=== PATIENT | female | born 1960 | race Caucasian/White ===

== ENCOUNTER 2017-08-08 10:46 | Emergency (ER) | payer OTHER, SELFPAY ==
[2017-08-08 11:10] VITALS: BP 158/92; PULSE 96; RESP 22; TEMP 36.8; O2SAT 100; BMI 26.5
[2017-08-08 11:36] LABS: Basophils % 0.5 % (0.1-2.0); Eosinophils # 0.1 K/mm3 (0.0-0.4); Hematocrit 40.5 % (37.0-47.0); Hemoglobin 13.3 g/dL (12.2-16.2); Lymphocytes # 2.7 K/mm3 (0.7-4.5); Lymphocytes % 41.6 K/mm3 (10-50); Mean Corpuscular HGB Conc 32.8 g/dL (31.8-35.4); Mean Corpuscular Hemoglobin 29.6 pg (27.0-31.2); Mean Corpuscular Volume 90.4 fl (81-99); Mean Platelet Volume 7.9 fl (7.4-10.4); Monocytes # 0.3 K/mm3 (0.1-1.0); Monocytes % 4.9 % (1.7-9.3); Neutrophils # 3.3 K/mm3 (1.8-7.8); Neutrophils % 51.9 % (37.0-80.0); Platelet Count 234 K/mm3 (142-424); Red Blood Count 4.48 M/mm3 (4.20-5.40); Red Cell Distribution Width 12.7 % (11.5-17.5); White Blood Count 6.4 K/mm3 (4.8-10.8)
[2017-08-08 11:56] LABS: Alanine Aminotransferase 25 U/L (12-78); Albumin Level 3.9 gm/dL (3.4-5.0); Albumin/Globulin Ratio 1.1 (1.1-1.8); Alkaline Phosphatase 63 U/L (46-116); Anion Gap 14.4 mEq/L (5-15); Aspartate Amino Transferase 19 U/L (15-37); Bilirubin,Total 0.4 mg/dL (0.2-1.0); Blood Urea Nitrogen 12 mg/dL (7-18); Calcium 8.9 mg/dL (8.5-10.1); Carbon Dioxide 26 mmol/L (21.0-32.0); Chloride 101 mmol/L (98-107); Creatinine Clearance Estimated 96 mL/min (0-300); Creatinine,Serum 0.66 mg/dL (0.55-1.02); Estimated Glomerular Filt Rate 92 ml/min (>60); GFR (African American) 111 ML/MIN (>60); Globulin 3.7 gm/dl (1.3-3.2); Glucose 140 mg/dL (74-106); Potassium 3.4 mmoL/L (3.5-5.1); Sodium 138 mmol/L (136-145); Total Protein,Serum 7.6 gm/dL (6.4-8.2)
--- NOTE | 2017-08-08 11:58 | HMH.EDGENADL ---
ED Disposition Clinical Impression: Viral gastroenteritis Disposition: Home, Self-Care Condition on Discharge: Fair Additional Instructions: Stay on clear liquids for next 24 to 48 hours and use medicines as directed. Prescriptions: Loperamide HCl [Imodium 2 mg capsule] 2 mg PO DIRECTED 5 Days #30 cap Ondansetron HCl [Zofran 4mg Tab] 4 mg PO Q6H 7 Days #30 tab Referrals: Rancho Willis MD [Primary Care Provider] - Time of Disposition: 14:34 - Critical Care Critical Care Time: No Attestation: On 08/08/17, the high probability of a clinically significant, sudden or life threatening deterioration of the following system(s) required my full and direct attention, intervention and personal management. The time I documented below is in addition to time spent performing reported procedures but includes the following listed in this critical care notation. Medical Decision Making - Medical Records Medical records reviewed: Yes: I reviewed the patient's medical records. Vital Signs: 08/08/17 11:10 Temperature 98.3 F Temperature Source Oral Pulse Rate [Right Radial] 96 H Respiratory Rate 22 Blood Pressure [Right Arm] 158/92 Blood Pressure Mean [Right Arm] 114 Blood Pressure Source [Right Arm] Automatic Cuff Blood Pressure Position [Right Arm] Supine 02 Sat by Pulse Oximetry 100 Oxygen Delivery Method Room Air - Lab Data Lab results reviewed: Yes: I reviewed the patient's lab results. Lab Results 08/08/17 11:25: WBC 6.4, RBC 4.48, Hgb 13.3, Hct 40.5, MCV 90.4, MCH 29.6, MCHC 32.8, RDW 12.7, Plt Count 234, MPV 7.9, Neut % (Auto) 51.9, Lymph % (Auto) 41.6, [place] % (Auto) 4.9, Eos % (Auto) 1.0, Baso % (Auto) 0.5, Neut # (Auto) 3.3, Lymph # (Auto) 2.7, [place] # (Auto) 0.3, Eos # (Auto) 0.1, Baso # (Auto) 0.0 08/08/17 11:25: Sodium 138, Potassium 3.4 L, Chloride 101, Carbon Dioxide 26, Anion Gap 14.4, BUN 12, Creatinine 0.66, Estimated Creat Clear 96, Estimated GFR 92, Est GFR ( Amer) 111, Glucose 140 H, Calcium 8.9, Total Bilirubin 0.4, AST 19, ALT 25, Alkaline Phosphatase 63, Total Protein 7.6, Albumin 3.9, Globulin 3.7 H, Albumin/Globulin Ratio 1.1 08/08/17 12:30: Urine Color Yellow, Urine Appearance Clear, Urine pH 7.0, Ur Specific [place] <= 1.005, Urine Protein Negative, Urine Glucose (UA) Negative, Urine Ketones Negative, Urine Blood Negative, Urine Nitrate Negative, Urine Bilirubin Negative, Urine Urobilinogen 0.2, Ur Leukocyte Esterase Trace, Urine WBC 5-10, Ur Squamous Epith Cells Occasional, Urine Bacteria 1+ Result diagrams: 08/08/17 11:25 08/08/17 11:25 Orders (Tests/Meds): ED MEDICATIONS Discontinued Medications Generic Name Dose Route Start Last Admin Trade Name Freq PRN Reason Stop Dose Admin Sodium Chloride 1,000 mls @ 999 mls/hr 08/08/17 12:15 08/08/17 13:34 Sod Chloride 0.9% 1000ml Bag IV 08/08/17 13:15 999 mls/hr .Q1H1M MARY Administration Ondansetron HCl 4 mg 08/08/17 12:07 Zofran 4mg/2ml Vial IM 08/08/17 12:08 ONCE ONE Ondansetron HCl 4 mg 08/08/17 13:33 08/08/17 13:35 Zofran 4mg/2ml Vial IV 08/08/17 13:34 4 mg ONCE ONE Administration Pantoprazole Sodium 40 mg 08/08/17 12:07 08/08/17 13:33 Protonix 40mg Vial IV 08/08/17 12:08 40 mg ONCE ONE Administration Sodium Chloride 8 ml 08/08/17 12:07 08/08/17 13:32 Saline Flush 10ml Syringe IV 08/08/17 12:08 8 ml ONCE ONE Administration ORDERS Category Date Time Status Acute abdomen XR series [XR acute abdomen series] Stat Exams 08/08/17 13:18 Taken Diarrhea Panel, PCR Stat Lab 08/08/17 12:08 Ordered - Radiology Data #1 Image(s): Chest, Abdomen Image Reviewed: Yes I reviewed the patient's radiology results, Yes I reviewed the patient's radiology image Preliminary Findings: Normal/NAD Normal chest and non specific bowel gas pattern - Allan Inquiry Pt receiving controlled substance: No Allan was queried for this patient: No General Adult
[2017-08-08 12:34] LABS: Appearance,Urine CLEAR (Clear); Bilirubin,Urine Negative (Negative); Blood, Urine Negative (Negative); Color,Urine YELLOW (Yellow); Glucose,Urine (UA) Negative (Negative); Ketones,Urine Negative (Negative); Leukocyte Esterase,Urine TRACE (Negative); Microscopic, Urine URINE MICROSCOPIC (MICROSCOPIC); Nitrate,Urine Negative (Negative); Protein,Urine Negative (Negative); Specific Gravity, Urine <= 1.005 (1.005-1.030); Urobilinogen,Urine 0.2 EU/dl (0.2)
[2017-08-08 12:45] LABS: Bacteria,Urine 1+ /lpf; Squamous Epithelial Cell,Urine Occasional #/hpf (0-5)
--- NOTE | 2017-08-08 13:18 | XR_ITS ---
XR acute abdomen series HISTORY: ITS.REASON: abdominal pain and diarrhea ORDERING PHYSICIAN: Maikel Acosta MD PATIENT AGE: 57 years COMPARISON: None FINDINGS: The bowel gas pattern is nonspecific with nondistended gas-filled loops of small and large bowel. No free air.. Nonspecific pelvic calcifications are present likely related to phleboliths.. Upright view of the chest shows no acute finding. IMPRESSION: Nonspecific nonacute findings
[2017-08-08 15:00] VITALS: BP 122/74; PULSE 78; RESP 20; TEMP 36.8; O2SAT 98
== END 2017-08-08 15:00 | disposition home or self-care (01) ==
LOC: UTC 11:02 → ER 11:06
PROVIDERS: Emergency Provider General Practice; Family Provider Family Medicine; PCP Family Medicine
DX: A08.4 Viral intestinal infection, unspecified (principal)
CPT/HCPCS: 74021; 80053; 81001; 85025; 96365; 96372; 96375; 99284; 99291; J2405

== ENCOUNTER → 2017-08-20 16:55 | Outpatient (CLI) | payer OTHER, SELFPAY | PROVIDERS: PCP Family Medicine; Visit Provider Family Medicine | DX: R00.2 Palpitations (principal) | CPT/HCPCS: 93005; 93225; 93226 ==

== ENCOUNTER → 2017-09-09 08:06 | Outpatient (CLI) | payer OTHER, SELFPAY ==
--- NOTE | 2017-09-09 08:08 | CI_ITS ---
Cerebrovascular Exam Indications: 780.2 Syncope and collapse. IMPRESSIONS 1. The bilateral vertebral arteries are patent with normal antegrade flow. 2. Study suggests less than 20% stenosis involving the right internal carotid artery and the left internal carotid artery. Carotid duplex study. Complete study and Doppler flow study including spectral analysis, color and raymond scale imaging. Location: Vascular laboratory. Patient status: Outpatient. Tables: Arterial flow: + +--------+--------+ Location V sys V ed + +--------+--------+ Right CCA - proximal 98.2cm/s 29.1cm/s + +--------+--------+ Right CCA - distal 56.6cm/s 22cm/s + +--------+--------+ Right ECA 71.5cm/s -------- + +--------+--------+ Right ICA - proximal 34.6cm/s 17cm/s + +--------+--------+ Right ICA - mid 44cm/s 22.6cm/s + +--------+--------+ Right ICA - distal 54.7cm/s 24.5cm/s + +--------+--------+ Right vertebral 32.7cm/s -------- + +--------+--------+ Left CCA - proximal 58.5cm/s 16.3cm/s + +--------+--------+ Left CCA - distal 79.8cm/s 25.1cm/s + +--------+--------+ Left ECA 77.3cm/s -------- + +--------+--------+ Left ICA - proximal 62.2cm/s 19.5cm/s + +--------+--------+ Left ICA - mid 69.1cm/s 22cm/s + +--------+--------+ Left ICA - distal 66cm/s 16.3cm/s + +--------+--------+ Left vertebral 40.2cm/s -------- + +--------+--------+ Velocity ratios: + + + + + + Right, V sys Right, V ed Left, V sys Left, V ed + + + + + + Max ICA/dist CCA 0.97 1.11 0.87 0.88 + + + + + + (Report amended ) Electronically signed by: Osbaldo Ramírez [id number]
--- NOTE | 2017-09-09 08:08 | CA_ITS ---
PROCEDURE: 2-D M-mode and color Doppler study INDICATIONS FOR THE TEST: Chest pain COPD Heart Murmur Tobacco Smoking Palpitations Fatigue SyncopeX Edema Hypertension Diabetes Mellitus Rheumatic Fever SOB GIL Obesity Hyperlipidemia Family History HD Additional History PATIENT INFORMATION HEIGHT: 62 WEIGHT:141 GENDER: Female B/P:130/80 2-D/M-MODE INTERPRETATION: 2-D MEASUREMENTS OBSERVED VALUES IN CMS Right Ventricular Dimension (RVDd) 3.0 Interventricular Septum (Thickness)(IVsd) .8 Left Ventricular Internal Dimensions(LVIDd) 4.3 Left Ventricular Posterior Wall (Thickness)(LVPWd) .8 Aortic Root 2.9 Aortic Cusp Separation 1.9 Left Atrial Dimensions (LAD) 3.3 2D 1. Left atrium is qualitatively mildly enlarged, left ventricle is normal size, there is no concentric left ventricular hypertrophy seen, visually estimated ejection fraction 55% with no obvious regional wall motion abnormality. 2. The right atrium is normal size, right ventricle is mildly enlarged with normal contractility. 3. The aortic valve is minimally thickened and fibrosed. 4. The mitral and tricuspid valvular grossly normal. 5. The pulmonic valve is poorly visualized. 6. No significant pericardial effusion noted. DOPPLER INTERROGATION: Doppler interrogation of the aortic, mitral and tricuspid valvular presence of mild mitral and mild to moderate tricuspid regurgitation, calculated right ventricular systolic pressure is 40 to 45 mmHg consistent with the moderate pulmonary hypertension, grade 1 diastolic dysfunction seen without tissue Doppler evidence of raised left atrial pressure. CONCLUSION: 1. Mildly enlarged left atrium, normal left ventricular size, visually estimated ejection fraction 55% with no obvious regional wall motion abnormality, grade 1 diastolic dysfunction seen without tissue Doppler evidence of raised left atrial pressure. 2. Mildly enlarged right ventricle with normal contractility. 3. Mild mitral and tricuspid regurgitation, calculated right ventricular systolic pressure is 40 to 45 mmHg consistent with moderate pulmonary hypertension 4. No significant pericardial effusion noted.
== END ==
PROVIDERS: Family Provider Family Medicine; PCP Family Medicine; Visit Provider Nurse Practitioner Family
DX: R55 Syncope and collapse (principal)
CPT/HCPCS: 93306; 93880

== ENCOUNTER 2018-11-13 18:52 | Emergency (ER) | payer OTHER, SELFPAY ==
[2018-11-13 19:08] VITALS: BP 171/106; PULSE 87; RESP 18; TEMP 36.7; O2SAT 97; BMI 30.9
--- NOTE | 2018-11-13 19:13 | XR_ITS ---
XR ankle RT min 3V HISTORY: ITS.REASON: pain ORDERING PHYSICIAN: Raymond Jo APRN PATIENT AGE: 58 years Comparison: None FINDINGS: Twisting injury with pain there is a nondisplaced avulsion fracture at the tip of the lateral malleolus with overlying soft tissue swelling. Otherwise negative. IMPRESSION: Nondisplaced avulsion fracture at the tip lateral malleolus
--- NOTE | 2018-11-13 19:59 | HMH.EDUTC ---
[facility] [place]ression: Avulsion fracture of ankle Qualifiers: Encounter type: initial encounter Fracture type: closed Laterality: right Qualified Code(s): S82.891A - Other fracture of right lower leg, initial encounter for closed fracture Disposition: Home, Self-Care Condition on Discharge: Good Instructions: Ankle Fracture, DI for Ankle Fracture, DI for Avulsion Fracture Additional Instructions: RICE--Rest the extremity, Apply Ice as tolerated for 15 minutes three or four times per day, Wear the hunter wrap to help reduce swelling, Elevate the extremity while you are resting Follow up with Dr. Suarez (orthopedics). I put in a referral. Please call the number on the chart and get yourself an appointment. Wear the cast boot until you are seen by orthopedics (Dr. Suarez). Then follow her instructions from there. Referrals: Jerry Mcginnis MD [Primary Care Provider] - Kelli Suarez MD [Physician] - Time of Disposition: 20:00 Medical Decision Making - Medical Records Medical records reviewed: Yes: I reviewed the patient's medical records. - Allan Inquiry Pt receiving controlled substance: No Allan was queried for this patient: No Vital Signs: 11/13/18 19:08 11/13/18 20:10 Temperature 98.1 F 98.1 F Temperature Source Temporal Artery Scan Oral Pulse Rate 87 Pulse Rate [Right Brachial] 87 Respiratory Rate 18 18 Blood Pressure 171/106 H Blood Pressure [Right Arm] 171/106 H Blood Pressure Mean [Right Arm] 127 Blood Pressure Source Automatic Cuff Blood Pressure Source [Right Arm] Automatic Cuff Blood Pressure Position Sitting Blood Pressure Position [Right Arm] Sitting 02 Sat by Pulse Oximetry 97 Oxygen Delivery Method Room Air Room Air - Radiology Data #1 Image(s): Ankle (avulsion fracture noted. cast boot applied and referred to podiatry. ) Image Reviewed: Yes I reviewed the patient's radiology image, Yes I have reviewed radiologist's interpretation Preliminary Findings: Abnormal [facility] [place] - General Stated complaint: AO 11/12/18 Fell in hole, injured r ankle Time Seen by Provider: 11/13/18 19:40 Mode of Arrival: Family Vehicle Source of Information: Patient Limitations: No Limitations Description of Symptoms (Recalled from Triage Doc. by RN): S/P FALL IN HOLE LAST PM. C/O RIGHT ANKLE PAIN HEENT Symptoms (Recalled from RN notes): No Resp Symptoms (Recalled from RN notes): No Skin Symptoms (Recalled from RN notes): No MS Symptoms (Recalled from RN notes): Yes Functional Status (Recalled from RN notes): N/A - History of Present Illness Provider Complaint: She states that yesterday eveing she stepped into a hole with her right foot and twisted her right ankle and fell. Since then she has had right ankle pain and swelling. Walking on the ankle and bearing weight makes her pain worse. She has been taking tylenol and it has helped her pain some. - Related Data Home Medications Medication Instructions Recorded Confirmed ALPRAZolam [Xanax 0.5mg tab] 0.5 mg PO TID 11/13/18 11/13/18 PARoxetine HCl [Paxil 20mg Tablet] 20 mg PO DAILY 11/13/18 11/13/18 Allergies Allergy/AdvReac Type Severity Reaction Status Date / Time IV CONTRAST Allergy Uncoded 11/13/18 19:13 - Worker's Comp Is this a Worker's Comp case?: No [facility] History - Hepatitis A Screen Drug use history?: No High risk sexual behaviors?: No History of sexually transmitted infection?: No Currently employed?: No Childcare worker?: No Do you have indoor plumbing?: Yes Do you have electricity?: Yes Attestation statement:: This patient has been screened for Hepatitis A risk factors. Medical History: Denies:: Cancer, Diabetes Mellitus Type 1, Diabetes Mellitus Type 2, MRSA Amputation: No Fractures: No - Social History Smoking Status: Never smoker Alcohol Intake: never Occupational Status: other - Psychiatric History Expresses thoughts of harming self/others: None Suicide Plan
--- NOTE | 2018-11-13 20:02 | ED_ITS ---
[facility] [place] Disposition Clinical Impression: Avulsion fracture of ankle Qualifiers: Encounter type: initial encounter Fracture type: closed Laterality: right Qualified Code(s): S82.891A - Other fracture of right lower leg, initial encounter for closed fracture Disposition: Home, Self-Care Condition on Discharge: Good Instructions: Ankle Fracture, DI for Ankle Fracture, DI for Avulsion Fracture Additional Instructions: RICE--Rest the extremity, Apply Ice as tolerated for 15 minutes three or four times per day, Wear the hunter wrap to help reduce swelling, Elevate the extremity while you are resting Follow up with Dr. Suarez (orthopedics). I put in a referral. Please call the number on the chart and get yourself an appointment. Wear the cast boot until you are seen by orthopedics (Dr. Suarez). Then follow her instructions from there. Referrals: Jerry Mcginnis MD [Primary Care Provider] - Kelli Suarez MD [Physician] - Time of Disposition: 20:00 Medical Decision Making - Medical Records Medical records reviewed: Yes: I reviewed the patient's medical records. - Allan Inquiry Pt receiving controlled substance: No Allan was queried for this patient: No Vital Signs: 11/13/18 19:08 11/13/18 20:10 Temperature 98.1 F 98.1 F Temperature Source Temporal Artery Scan Oral Pulse Rate 87 Pulse Rate [Right Brachial] 87 Respiratory Rate 18 18 Blood Pressure 171/106 H Blood Pressure [Right Arm] 171/106 H Blood Pressure Mean [Right Arm] 127 Blood Pressure Source Automatic Cuff Blood Pressure Source [Right Arm] Automatic Cuff Blood Pressure Position Sitting Blood Pressure Position [Right Arm] Sitting 02 Sat by Pulse Oximetry 97 Oxygen Delivery Method Room Air Room Air - Radiology Data #1 Image(s): Ankle (avulsion fracture noted. cast boot applied and referred to podiatry. ) Image Reviewed: Yes I reviewed the patient's radiology image, Yes I have reviewed radiologist's interpretation Preliminary Findings: Abnormal [facility] [place] HPI - General Stated complaint: AO 11/12/18 Fell in hole, injured r ankle Time Seen by Provider: 11/13/18 19:40 Mode of Arrival: Family Vehicle Source of Information: Patient Limitations: No Limitations Description of Symptoms (Recalled from Triage Doc. by RN): S/P FALL IN HOLE LAST PM. C/O RIGHT ANKLE PAIN HEENT Symptoms (Recalled from RN notes): No Resp Symptoms (Recalled from RN notes): No Skin Symptoms (Recalled from RN notes): No MS Symptoms (Recalled from RN notes): Yes Functional Status (Recalled from RN notes): N/A - History of Present Illness Provider Complaint: She states that yesterday eveing she stepped into a hole with her right foot and twisted her right ankle and fell. Since then she has had right ankle pain and swelling. Walking on the ankle and bearing weight makes her pain worse. She has been taking tylenol and it has helped her pain some. - Related Data Home Medications Medication Instructions Recorded Confirmed ALPRAZolam [Xanax 0.5mg tab] 0.5 mg PO TID 11/13/18 11/13/18 PARoxetine HCl [Paxil 20mg Tablet] 20 mg PO DAILY 11/13/18 11/13/18 Allergies Allergy/AdvReac Type Severity Reaction Status Date / Time IV CONTRAST Allergy Uncoded 11/13/18 19:13 - Worker's
[2018-11-13 20:10] VITALS: BP 171/106; PULSE 87; RESP 18; TEMP 36.7; O2SAT 97
== END 2018-11-13 20:12 | disposition home or self-care (01) ==
PROVIDERS: Emergency Provider Nurse Practitioner Family; PCP Family Medicine
DX: S82.891A Other fracture of right lower leg, initial encounter for closed fracture (principal); W01.0XXA Fall on same level from slipping, tripping and stumbling without subsequent striking against object, initial encounter; Y92.017 Garden or yard in single-family (private) house as the place of occurrence of the external cause
CPT/HCPCS: 29515; 73610; 99201; 99203

== ENCOUNTER → 2019-01-09 10:09 | Outpatient (CLI) | payer OTHER, SELFPAY ==
--- NOTE | 2019-01-09 10:13 | XR_ITS ---
XR ankle RT min 3V HISTORY: ITS.REASON: right ankle pain ORDERING PHYSICIAN: Kelli Suarez MD PATIENT AGE: 59 years Comparison: 11/13/2018. FINDINGS: Bone density is stable and perhaps mildly osteopenia. There is no acute fracture. Alignment and joint spaces and soft tissues are unremarkable. There is a 2 mm plantar calcaneal spur. Impression: No acute process. Stable mild osteopenia and small plantar calcaneal spur.
== END ==
PROVIDERS: PCP Family Medicine; Visit Provider Orthopaedic Surgery
DX: M25.571 Pain in right ankle and joints of right foot (principal)
CPT/HCPCS: 73610

== ENCOUNTER 2019-03-09 08:30 | Outpatient (RCR) | payer OTHER, SELFPAY ==
--- NOTE | 2019-01-19 09:32 | HMH.PTOPEV ---
PT Outpatient Evaluation Rehab PT Outpatient Evaluation Start: 01/19/19 09:23 Freq: Status: Active Protocol: Document 01/19/19 09:24 DOROTA (Rec: 01/19/19 09:32 DOROTA [id number]) Electronically Signed By Apollo Begum, PT 01/19/19 09:24 Outpatient Therapy Subjective History Subjective History Pt reports stepping in a hole in the road in front of her mothers home on 11/12/18. Pt reports severe inversion sprain, and has been using cam walker on R foot until ~6 days ago. Pt reports lingering lateral R ankle, sanjay. w/wt. bearing, and swelling. Xrays were grossly unremarkable of R ankle. Chief Complaint Pain,Stiff,Swelling,Weakness Symptom Type Ache,Sharp,Dull Symptoms Relieved By Rest/Positioning,OTC Meds Symptoms Aggravated By Standing,Walking Prior Functional Limitations Housework,Driving,Standing, Walking,Stairs Current Functional Limitations Housework,Driving,Standing, Walking,Stairs Symptom Description Constant but Variable Level of pain today (0-10) 3 Pain scale - at its best (0-10) 1 Pain scale - at its worst (0-10) 6 Ankle/Foot Eval Gait Observation General Gait Pattern Observation Antalgic Gait,Wide Based Gait, Decrease Weight Bear (R) Assistive Device Ambulation Assistive Device None Palpation Tenderness right Ankle/Foot Palpation Findings Tenderness Ankle/Foot Palpation Overall Comment 3/4 ATF TTP positive PTF TTP positive CF TTP positive ROM left Ankle/Foot Dorsiflexion w/Knee Extended 0-15 Active Range Motion (degrees) Ankle/Foot Plantar Flexion Active Range 0-60 of Motion (degrees) Ankle/Foot Eversion Active Range of 0-20 Motion (degrees) Ankle/Foot Inversion Active Range of 0-65 Motion (degrees) right Ankle/Foot Dorsiflexion w/Knee Extended 0-10 Active Range Motion (degrees) Ankle/Foot Plantar Flexion Active Range 0-40 of Motion (degrees) Ankle/Foot Eversion Active Range of 0-15 Motion (degrees) Ankle/Foot Inversion Active Range of 0-45 Motion (degrees) Ankle/Foot ROM Limitations Pain MMT left Ankle Dorsiflexion Strength Grade 5 Normal Ankle Plantarflexion Strength Grade 5 Normal Foot Eversion Strength Grade 5 Normal Foot Inversion Strength Grade 5 Normal right Ankle Dorsiflexion Strength
--- NOTE | 2019-02-17 08:45 | HMH.RHREAS ---
Rehab Reassessment Rehab OP Re-assessment Start: 02/17/19 07:54 Freq: Status: Active Protocol: Document 02/17/19 08:39 DOROTA (Rec: 02/17/19 08:45 [email or web address] [id number]) Electronically Signed By Apollo Begum, PT 02/17/19 08:39 Rehab Re-assessment Subjective Subjective PT REPORTS NO R ANKLE PAIN THIS AM, AND FEELS 90% BETTER OVERALL SINCE I EVAL Objective Objective Notes AROM: R ANKLE DF 0-20, PF 0-45 , INV 0-45, EVR 0-15 MMT: R ANKLE DF 5/5, PF 5/5, INV 4/5, EVR 4/5 TTP: R ANKLE ATF 2/4, R SINUS TARSI 2/4 Assessment Progress Assessment Progressing as Expected Assessment Notes PT W/IMPROVED AROM, STRENGTH, AND TTP Patient goals met STG'S 03/23 LTG'S 09/20 Goals Not Met LTG'S 12/21 Plan Plan PT TO CONT. W/SKILLED P.T. TO MAKE FURTHER IMPROVEMENTS IN AROM, TTP, AND STRENGTH TO ALLOW FOR OPTIMAL FUNCTION Frequency of Therapy 2-3X/WK Duration of therapy 3-4 WKS Time and Billing Re-Eval Time 15 Re-Eval Billing Units 1 PHYSICIAN CERTIFICATION: I certify the specified therapy services for Paola Alexander are required, authorized, and reviewed every 30 days.
== END 2019-03-09 08:35 | disposition home or self-care (01) ==
LOC: PT 08:30
PROVIDERS: Visit Provider Orthopaedic Surgery
DX: S93.401A Sprain of unspecified ligament of right ankle, initial encounter (principal)
CPT/HCPCS: 97010; 97014; 97033; 97035; 97110; 97112; 97163; 97164; G0283

== ENCOUNTER → 2019-05-05 11:05 | Outpatient (POV) | payer OTHER, SELFPAY | PROVIDERS: Visit Provider Dermatology | DX: Z00.00 Encounter for general adult medical examination without abnormal findings (principal) ==

== ENCOUNTER → 2021-02-22 12:22 | Outpatient (CLI) | payer OTHER, SELFPAY ==
[2021-02-22 14:30] LABS: Coronavirus 19 IgG Antibody Negative (Negative); Coronavirus 19 IgM Antibody Negative (Negative)
== END ==
PROVIDERS: Visit Provider Psychiatry & Neurology Sleep Medicine
DX: Z20.822 Contact with and (suspected) exposure to COVID-19 (principal)
CPT/HCPCS: 36415; 86328

== ENCOUNTER → 2021-05-02 13:03 | Outpatient (POV) | payer OTHER, SELFPAY | PROVIDERS: Visit Provider Dermatology | DX: Z00.00 Encounter for general adult medical examination without abnormal findings (principal) ==

== ENCOUNTER → 2021-05-19 11:07 | Outpatient (CLI) | payer OTHER, SELFPAY ==
[2021-05-19 12:10] LABS: Basophils # 0.1 K/mm3 (0-0.2); Basophils % 1.6 % (0.1-2.0); Eosinophils # 0.1 K/mm3 (0.0-0.4); Eosinophils % 1.2 % (0.1-12.0); Hematocrit 43.5 % (37.0-47.0); Hemoglobin 14.1 g/dL (12.2-16.2); Lymphocytes # 2.8 K/mm3 (0.7-4.5); Lymphocytes % 46.7 % (10-50); Mean Corpuscular HGB Conc 32.5 g/dL (31.8-35.4); Mean Corpuscular Hemoglobin 30.6 pg (27.0-31.2); Mean Platelet Volume 8.3 fl (7.4-10.4); Monocytes # 0.2 K/mm3 (0.1-1.0); Monocytes % 3.9 % (1.7-9.3); Neutrophils # 2.8 K/mm3 (1.8-7.8); Neutrophils % 46.7 % (37.0-80.0); Platelet Count 298 K/mm3 (142-424); Red Blood Count 4.62 M/mm3 (4.20-5.40); Red Cell Distribution Width 13.4 % (11.5-17.5)
== END ==
PROVIDERS: PCP Family Medicine; Visit Provider Physician Assistant
DX: Z20.822 Contact with and (suspected) exposure to COVID-19 (principal)
CPT/HCPCS: 36415; 85025; C9803; U0003; U0005

== ENCOUNTER 2021-08-03 09:16 | Emergency (ER) | payer OTHER, SELFPAY ==
[2021-08-03 10:39] VITALS: BP 138/85; PULSE 94; RESP 18; TEMP 37.5; O2SAT 98; BMI 30.2
--- NOTE | 2021-08-03 11:10 | HMH.EDUTC ---
[facility] [place] Clinical Impression: Viral syndrome Disposition: Home, Self-Care Condition on Discharge: Good Instructions: DI for Viral Syndrome Additional Instructions: Drink plenty of fluids. Take tylenol or ibuprofen for pain or fever. Take the medications as directed. Follow up with your regular doctor. GO TO THE ER FOR ANY WORSENING SYMPTOMS Quarantine until you know the results of your covid-19 test. Notify your school or workplace of your results and follow their instructions regarding return to work/school. Prescriptions: Promethazine/Dextromethorphan [Promethazine-Dm Syrup] 5 ml PO Q6HP PRN #240 ml PRN Reason: Cough Transmission Status: Received by [facility] # Benzonatate [Benzonatate 100mg cap] 100 mg PO TIDP PRN #30 cap PRN Reason: Cough Transmission Status: Received by [facility] # Azithromycin [Z-Lucien 250mg Tab*] 250 mg PO UD DOSE PK #6 tab Transmission Status: Received by [facility] # Referrals: Jerry Mcginnis MD [Primary Care Provider] - Time of Disposition: 11:33 Medical Decision Making - Medical Records Medical records reviewed: No: I reviewed the patient's medical records. - Allan Inquiry Pt receiving controlled substance: No Vital Signs: 08/03/21 10:39 08/03/21 11:47 Temperature 99.5 F 99.5 F Temperature Source Oral Pulse Rate 94 H Pulse Rate [Left] 94 H Respiratory Rate 18 18 Blood Pressure 138/85 Blood Pressure [Right Arm] 138/85 Blood Pressure Mean [Right Arm] 102 02 Sat by Pulse Oximetry 98 - Lab Data Lab results reviewed: Yes: I reviewed the patient's lab results. Lab Results 08/03/21 10:42: Influenza Type A Ag Negative, Influenza Type B Ag Negative [facility] [place] - General Stated complaint: fever/chills, GIPSON Time Seen by Provider: 08/03/21 10:50 Mode of Arrival: Ambulatory Source of Information: Patient Limitations: No Limitations Description of Symptoms (Recalled from Triage Doc. by RN): PT C/O A FEVER AND GIPSON SINCE YESTERDAY. HEENT Symptoms (Recalled from RN notes): Yes (GIPSON) Resp Symptoms (Recalled from RN notes): No Skin Symptoms (Recalled from RN notes): No MS Symptoms (Recalled from RN notes): No Functional Status (Recalled from RN notes): WNL - History of Present Illness Provider Complaint: She states that she has had chills, body aches, dry cough, scratchy sore throat since yesterday. She has not been vaccinated against covid, but she has a flu shot. She denies any known sick contacts. - Related Data Home Medications Medication Instructions Recorded Confirmed ALPRAZolam [Xanax 0.5mg tab] 0.5 mg PO TID 11/13/18 02/13/19 PARoxetine HCL [Paxil 20mg Tablet] 20 mg PO DAILY 11/13/18 02/13/19 Previous Rx's Medication Instructions Recorded Azithromycin [Z-Lucien 250mg Tab*] 250 mg PO UD DOSE PK #6 tab 08/03/21 Benzonatate [Benzonatate 100mg 100 mg PO TIDP PRN #30 cap 08/03/21 cap] Promethazine/Dextromethorphan 5 ml PO Q6HP PRN #240 ml 08/03/21 [Promethazine-Dm Syrup] Allergies Allergy/AdvReac Type Severity Reaction Status Date / Time IV CONTRAST Allergy Uncoded 02/13/19 09:11 - Worker's Comp Is this a Worker's Comp case?: No [facility] History - Hepatitis A Screen Drug use history?: No High risk sexual behaviors?: No History of sexually transmitted infection?: No Currently employed?: No Childcare worker?: No Do you have indoor plumbing?: Yes Do you have electricity?: Yes Attestation statement:: This patient has been screened for Hepatitis A risk factors. I have reviewed the patient's past medical history: Yes Medical History: Denies:: Cancer, Diabetes Mellitus Type 1, Diabetes Mellitus Type 2, MRSA Other Surgeries: Yes: Colonoscopy Amputation: No Fractures: No - Social History Smoking Status: Never smoker Alcohol Intake: never Occupational Status: other Family Hx:: No significant family history ROS Obtained: Yes All systems
[2021-08-03 11:47] VITALS: BP 138/85; PULSE 94; RESP 18; TEMP 37.5
[2021-08-03 11:48] LABS: UTC Influenza A Antigen Negative (Negative); UTC Influenza B Antigen Negative (Negative)
== END 2021-08-03 11:49 | disposition home or self-care (01) ==
PROVIDERS: Emergency Provider Nurse Practitioner Family; PCP Family Medicine
DX: U07.1 COVID-19 (principal); B34.9 Viral infection, unspecified
CPT/HCPCS: 87804; 99202; C9803; G0463; U0003; U0005

== ENCOUNTER 2022-08-27 10:12 | Emergency (ER) | payer OTHER, SELFPAY ==
[2022-08-27 11:10] VITALS: BP 142/70; PULSE 86; RESP 17; TEMP 36.8; O2SAT 98; BMI 24.7
--- NOTE | 2022-08-27 11:48 | EXP.UTC ---
Discharge Plan Disposition Patient Disposition: Home, Self-Care Condition: Good Prescriptions Prescriptions: New benzonatate 100 mg capsule 100 mg PO TID PRN (Reason: cough) Qty: 15 0RF amoxicillin-pot clavulanate 875-125 mg Tablet 1 tab PO Q12H Qty: 14 0RF guaifenesin [Mucinex] 600 mg tablet extended release 12hr 600 mg PO BID PRN (Reason: cough) Qty: 20 0RF No Action alprazolam 0.5 MG tablet 0.5 mg PO TID paroxetine HCl 20 MG tablet 20 mg PO DAILY Label Comments: take 1 tablet by mouth once daily promethazine-DM 120 ML syrup 5 ml PO Q6HP PRN (Reason: Cough) Qty: 240 0RF azithromycin 250 MG tablet 250 mg PO UD DOSE PK Qty: 6 0RF Rx Instructions: Take two (2) tablets today, then one (1) tablet days #2 thru #5 benzonatate 100 MG capsule 100 mg PO TIDP PRN (Reason: Cough) Qty: 30 0RF Referrals Follow up/Referrals: Jerry Mcginnis MD [Primary Care Provider] - See instructions Activity Restrictions/Add. Instructions Additional Instructions/Restrictions: *Monitor Temp, Over the counter Motrin or Tylenol as directed/as needed Tylenol every 4 hours and Motrin every 6 hours (as long as your family doctor has told you that you can take it) for fever or pain. and straight to ER if unable to lower temp less than 101.0 after medication given *Warm salt water gargles may help to soothe the throat *Throat Lozenges? *Warm fluids like tea with honey may help to soothe the throat? *Sleep elevated *Humidifier/Vaporizer Follow up IMMEDIATELY for new or worsening symptoms or no Noticeable improvement over the next 48-72 hours. 911 for difficulty breathing or swallowing Clinical Impressions Clinical Impression: Sinusitis Instructions Patient Instructions: DI for Sinusitis, Sinusitis Discharge ED Provider: [place]acie Doran [facility] [place] Stated complaint: GIPSON, congestion Mode of Arrival: Ambulatory Source of Information: Patient Limitations: No Limitations Time Seen by Provider: 08/27/22 11:48 Description of Symptoms (Recalled from Triage Doc. by RN): PATIENT C/O HEAD CONGESTION X 3 DAYS HEENT Symptoms (Recalled from RN notes): Yes Resp Symptoms (Recalled from RN notes): No Skin Symptoms (Recalled from RN notes): No MS Symptoms (Recalled from RN notes): No Functional Status (Recalled from RN notes): WNL History of Present Illness Provider Complaint: Patient states that she has been having sinus congestion and pressure and feels like it is draining in the back of her throat trying to move into her chest States that she has been taking bromfed but out if Related Data Home Medications Medication Instructions Recorded Confirmed alprazolam 0.5 mg tablet 0.5 mg PO TID Anxiety 11/13/18 02/13/19 paroxetine HCl 20 mg tablet 20 mg PO DAILY Depression 11/13/18 02/13/19 Previous Rx's Medication Instructions Recorded azithromycin 250 mg tablet 250 mg PO UD DOSE PK #6 tabs 08/03/21 benzonatate 100 mg capsule 100 mg PO TIDP PRN Cough #30 caps 08/03/21 promethazine-DM 6.25 mg-15 mg/5 mL 5 ml PO Q6HP PRN Cough #240 mL 08/03/21 oral syrup amoxicillin 875 mg-potassium 1 tab PO Q12H #14 tabs 08/27/22 clavulanate 125 mg tablet benzonatate 100 mg capsule 100 mg PO TID PRN cough #15 caps 08/27/22 guaifenesin 600 mg tablet, 600 mg PO BID PRN cough #20 tabs 08/27/22 extended release 12 hr (Mucinex) Allergies Allergy/AdvReac Type Severity Reaction Status Date / Time Iodinated Contrast Media Allergy Verified 08/27/22 11:25 Worker's Comp Is this a Worker's Comp case?: No [facility] Disclaimer: The information contained in this section may have been updated after the patient was seen, as this information can be updated by other users. Medical History (Updated 08/27/22 @ 11:54 by Tracie Doran APRN) Anxiety Depression Social History (Updated 08/27/22 @ 11:25 by Cindy Aguiar RN) Smoking Status: Never smoker alcohol i
[2022-08-27 11:58] VITALS: BP 142/70; PULSE 86; RESP 17; TEMP 36.8; O2SAT 98
== END 2022-08-27 11:59 | disposition home or self-care (01) ==
PROVIDERS: Emergency Provider Nurse Practitioner; PCP Family Medicine
DX: J32.9 Chronic sinusitis, unspecified (principal)
CPT/HCPCS: 99212; 99213; G0463

== ENCOUNTER 2022-10-15 12:02 | Emergency (ER) | payer OTHER, SELFPAY ==
[2022-10-15 12:35] VITALS: BP 164/99; PULSE 74; RESP 20; TEMP 37; O2SAT 99; BMI 29.8
--- NOTE | 2022-10-15 12:37 | EXP.UTC ---
Discharge Plan Disposition Patient Disposition: Home, Self-Care Condition: Good Prescriptions Prescriptions: New azithromycin [Zithromax] 250 mg tablet 250 mg PO UD DOSE PK Qty: 6 0RF Rx Instructions: Take two (2) tablets today, then one (1) tablet days #2 thru #5 methylprednisolone 4 mg Tablets,Dose Pack 4 mg PO DIRECTED Qty: 21 0RF No Action alprazolam 0.5 MG tablet 0.5 mg PO TID citalopram 20 mg tablet 20 mg PO DAILY Label Comments: TAKE 1 TABLET BY MOUTH EVERY DAY lisinopril 5 mg tablet 5 mg PO DAILY Label Comments: TAKE 1 TABLET BY MOUTH EVERY DAY Referrals Follow up/Referrals: Jerry Mcginnis MD [Primary Care Provider] - See instructions Activity Restrictions/Add. Instructions Additional Instructions/Restrictions: Drink plenty of fluids. Take tylenol or ibuprofen for pain or fever. Take the medications as directed. Follow up with your regular doctor. GO TO THE ER FOR ANY WORSENING SYMPTOMS Clinical Impressions Clinical Impression: Otitis media, Sinusitis Instructions Patient Instructions: Sinusitis, DI for Sinusitis Discharge ED Provider: Raymond Jo [facility] General Stated complaint: Rt Ear Pain/ Congestion Time Seen by Provider: 10/15/22 12:37 History of Present Illness Provider Complaint: She states that for the past 2 days she has had worsening sinus congestion and ear pain. Related Data Home Medications Medication Instructions Recorded Confirmed alprazolam 0.5 mg tablet 0.5 mg PO TID Anxiety 11/13/18 10/15/22 citalopram 20 mg tablet 20 mg PO DAILY . 10/15/22 10/15/22 lisinopril 5 mg tablet 5 mg PO DAILY . 10/15/22 10/15/22 Previous Rx's Medication Instructions Recorded azithromycin 250 mg tablet 250 mg PO UD DOSE PK #6 tabs 10/15/22 (Zithromax) methylprednisolone 4 mg tablets in 4 mg PO DIRECTED #21 tabs 10/15/22 a dose pack Allergies Allergy/AdvReac Type Severity Reaction Status Date / Time Iodinated Contrast Media Allergy Verified 10/15/22 12:42 [facility] Disclaimer: The information contained in this section may have been updated after the patient was seen, as this information can be updated by other users. Medical History Anxiety Depression Social History Smoking Status: Never smoker alcohol intake: never current occupational status: other Travel in the last 8 weeks: None ROS Obtained: Yes All systems reviewed & no additional complaints except as documented Constitutional Constitutional: Denies chills, Reports fever(s) and Reports poor appetite Eyes Eyes: Denies eye discharge ENT Ears, Nose, Mouth, and Throat: Denies ear discharge, Reports otalgia, Denies hearing loss, Denies sinus pain and Reports sore throat Cardiovascular Cardiovascular: Denies chest pain and Denies dyspnea Respiratory Respiratory: Denies chest congestion, Reports cough and Denies dyspnea Gastrointestinal Gastrointestingal: Denies abdominal pain, diarrhea, nausea or vomiting Musculoskeletal Musculoskeletal: Denies arthralgias Integumentary/Breasts Skin/Breast: Denies rash Physical Exam General General appearance: alert and in no apparent distress Head Head exam: atraumatic, normocephalic and normal inspection Eye Eye exam: Present normal appearance; Absent PERRL or EOMI ENT ENT exam: Present mucous membranes moist and normal external ear exam Expanded ENT Exam TM/Canal exam: Bilateral TM: erythema, bulging and effusion Nose exam: Absent sinus tenderness Nasal speculum exam: Bilateral: normal Mouth exam: Present normal external inspection and other; Absent drooling Teeth exam: Present normal inspection Throat exam: Present tonsillar erythema and tonsillomegaly Neck Neck exam: Present normal inspection, full ROM and trachea midline; Absent tenderness, meningismus or lymphadenopathy Chest
[2022-10-15 12:43] LABS: UTC Strep Screen (Rapid) Negative (Negative)
[2022-10-15 13:39] VITALS: BP 164/99; PULSE 74; RESP 20; TEMP 37; O2SAT 99
== END 2022-10-15 13:38 | disposition home or self-care (01) ==
PROVIDERS: Emergency Provider Nurse Practitioner Family; PCP Family Medicine
DX: J01.90 Acute sinusitis, unspecified (principal); H66.91 Otitis media, unspecified, right ear
CPT/HCPCS: 87880; 99212; 99214; G0463

== ENCOUNTER 2023-08-13 10:35 | Outpatient (POV) | payer OTHER, SELFPAY | END 2023-08-13 23:59 | disposition home or self-care (01) | LOC: SC 10:35 | PROVIDERS: PCP Family Medicine; Visit Provider Dermatology | DX: Z00.00 Encounter for general adult medical examination without abnormal findings (principal) ==